=== PATIENT | male | born 1985 | race Caucasian/White ===

== ENCOUNTER 2019-01-17 18:56 | Emergency (ER) | payer OTHER, SELFPAY ==
[2019-01-17 18:57] VITALS: BP 132/91; PULSE 130; RESP 18; TEMP 36.7; O2SAT 95; BMI 37.8
--- NOTE | 2019-01-17 19:02 | EKG12_ITS ---
Test Reason : CP Blood Pressure : / mmHG Vent. Rate : 108 BPM Atrial Rate : 108 BPM P-R Int : 146 ms QRS Dur : 096 ms QT Int : 338 ms P-R-T Axes : 057 -18 024 degrees QTc Int : 452 ms Sinus tachycardia Otherwise normal ECG Confirmed by TREVOR MATA, DANNY ([id number]), editor department MANDIE VASQUEZ ([id number] on 01/19/2019 11:46:27 AM Referred By: JETT Confirmed By:DANNY MURRAY MD
--- NOTE | 2019-01-17 19:09 | ED.RN ---
NO OLD EKG
--- NOTE | 2019-01-17 19:22 | RAD_ITS ---
STUDY: X-RAY CHEST REASON FOR EXAM: Male, 33 years old. Chest pain. Shortness of breath. Diaphoresis. TECHNIQUE: PA and lateral views of the chest. COMPARISON: None. FINDINGS: The lungs are clear and expanded. There is no demonstrated pleural abnormality. Normal size heart. Normal mediastinum and jennifer. Normal visualized pulmonary arteries. Normal visualized aortic arch and descending thoracic aorta. Normal visualized thoracic spine. Normal visualized ribs, clavicles, and shoulders. There is no demonstrated abnormality of the visualized soft tissue structures of the upper abdomen. RAD/Chest PA and Lateral IMPRESSION: Normal x-ray examination of the chest. Electronically Signed: Lemuel Hooper DO at 19:32 EST Tel [phone], Service support ,
[2019-01-17 19:43] LABS: Basophil# 0.05 X10^3/uL; Basophil% 0.6 % (0-1); Eosinophil# 0.14 X10^3/uL; Eosinophils% 1.7 % (0-5); Hematocrit 49.5 % (40-54); Lymphocyte % 13.2 % (19-41); Mean Corp Hgb Conc 37.2 g/dL (32-36); Mean Corpuscular Hgb 31.2 pg (27.0-32.0); Mean Corpuscular Volume 83.9 fL (80-94); Mean Platelet Vol. 11.3 fl (6.2-12.0); Monocyte# 0.97 X10^3/uL; Monocyte% 11.7 % (0-10); NRBC Flagged by Analyzer 0 % (0-5); Neutrophil # 6.03 X10^3/uL (2.7-7.7); Neutrophil % 72.6 % (47-70); Platelet Count 165 K/mm3 (150-450); RBC Distribution Width CV 12.5 % (11.6-14.6); RBC Distribution Width SD 38.2 fl (35.1-43.9); White Blood Count 8.3 K/mm3 (4.4-11.0)
[2019-01-17] MEDS: 0.9% Normal Saline 1,000 ML 999 ML IV (19:49)
[2019-01-17] MEDS: Ondansetron 4 MG/2 ML Vial IV (19:49)
[2019-01-17] MEDS: Ketorolac 30 MG/ML Syringe IV (19:50)
[2019-01-17 19:51] LABS: Differential Indicated SCAN CRITERIA MET; Hemoglobin 18.4 g/dL (13.0-16.5)
[2019-01-17 19:56] LABS: D-Dimer Quantitative (DVT/PE) 1.86 FEU/ug/m (0.27-0.49)
--- NOTE | 2019-01-17 19:57 | CT_ITS ---
STUDY: CTA CHEST REASON FOR EXAM: Male, 33 years old. Shortness of breath. Chest pain. Smoker. Elevated d-dimer. RADIATION DOSAGE (If Supplied By Facility): CTDIvol = ( 24.82 ) mGy, DLP = ( 817.00 ) mGycm TECHNIQUE: The examination was performed with the intravenous administration of IV 100mL Isovue-370. Post-processing of the angiographic images was performed, with multiplanar reformation and 3D reconstruction. Individualized dose optimization techniques were used for this CT. COMPARISON: Chest, January 17, 2019. FINDINGS: Normal enhancement of the main pulmonary artery and right and left pulmonary arteries. Normal enhancement of the bilateral peripheral pulmonary arteries. There is no demonstrated pulmonary embolism. Normal thoracic aorta and visualized great vessels. There is no demonstrated aortic dissection. Normal heart and pericardium. Normal mediastinum. Normal hilar regions. Normal visualized trachea and bronchi. The lungs are well expanded. Normal pulmonary parenchyma. Normal pleura. Normal chest wall structures. Normal osseous structures. Hepatosplenomegaly. CT/CTA Chest W/WO Contrast IMPRESSION: 1. Normal CTA chest examination, without a demonstrated pulmonary embolism or arterial dissection. 2. Hepatosplenomegaly. Electronically Signed: Lemuel Hooper DO at 20:31 EST Tel [phone], Service support ,
[2019-01-17 20:00] VITALS: BP 131/80; PULSE 98; RESP 19; O2SAT 95
[2019-01-17 20:01] LABS: Anion Gap 7 (5-15); BUN 17 mg/dL (7-18); BUN/Creat Ratio 14.9 RATIO (10-20); Calcium,Total 9.5 mg/dL (8.5-10.1); Chloride 102 mmol/L (98-107); Creatinine, Serum 1.14 mg/dL (0.70-1.30); EST Glomerular Filtration Rate 78 mL/min (>60); Est Glom Filt Rate - Afr Amer 94 mL/min (>60); Estimated Creatinine Clearance 103.18 ml/min; Glucose 113 mg/dL (74-106); Potassium 3.3 mmol/L (3.5-5.1); Sodium Level 134 mmol/L (136-145)
[2019-01-17 20:37] LABS: Platelet Estimate ADEQUATE (ADEQ); Red Cell Morphology NORM C+C NORMAL (NORM C&C)
[2019-01-17 21:00] VITALS: BP 127/80; PULSE 95; RESP 15; O2SAT 95
--- NOTE | 2019-01-17 21:06 | ED.VISSUMM ---
- ER Visit Summary Date of Service: 01/17/19 Chief Complaint: Chest pain History of Present Illness: The patient is a [address] Eugene. He reports he has chest pain that began today at 4:00 while he was at rest. Is a continuous stabbing, aching pain is substernal in location. Zeta 10 currently and at worst. Is worsened by re-breathing. Relieved by nothing. Reports has been nauseated. He denies any vomiting. Reports is been diaphoretic and short of breath. Also states has been lightheaded. Patient does have a family history of DVT. 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 However, he denies any ankle swelling or calf pain. He does report that his been ill over the past 3 days. He has had subjective fever, chills, myalgias, cough, and generalized weakness. Physical Examination: Vitals: Stable. Afebrile. General: Well-nourished and well-developed. Head: Normocephalic atraumatic. HEENT: Pharyngeal erythema. No tonsillar exudate or enlargement. Neck: Supple, no lymphadenopathy. No JVD. Nontender. Cardiovascular: Regular rate and rhythm. No murmurs. Respiratory: No respiratory distress. Clear to auscultation bilaterally. Abdominal: Soft, nontender, nondistended, normal bowel sounds. No guarding, rebound, or peritoneal signs. Back: Nontender. Extremities: Nontender, no edema. Skin: Normal color, no rash. Neurologic: Alert and oriented ?3. Cranial nerves II through XII are intact. Normal strength and sensation. Psych: Normal affect. Test Results: EKG sinus tachycardia 108 with non-acute changes. Opponent is negative. D-dimer is 1.86. 7 shows a sodium 134, potassium 3.3, glucose 113. CBC shows a hemoglobin of 18.4, segmented for 73, 02/15/2012. Influenza and strep are negative. Clinical Impression(s) from Imaging Studies Chest X-Ray 01/17/19 19:22 IMPRESSION: Normal x-ray examination of the chest. Electronically Signed: Lemuel Hooper DO at 19:32 EST Tel [phone], Service support , Chest CTA 01/17/19 19:57 IMPRESSION: 1. Normal CTA chest examination, without a demonstrated pulmonary embolism or arterial dissection. 2. Hepatosplenomegaly. Electronically Signed: Lemuel Hooper DO at 20:31 EST Tel [phone], Service support , Emergency Department Course and Treatment: Patient was given a liter of normal saline. He was given Toradol IV. He is resting comfortably. Treatment Plan: Patient will be discharged symptomatic care. Push fluids. Use Tylenol/ibuprofen for fever and pain. Follow-up with Dr. montiel in 3 to 5 days if not improving. Return to the emergency department for any worsening symptoms. Disposition: To home in improved and stable condition. Impression: 1. Atypical chest pain. 2. URI. This note was generated with [employer] dictation software. It may contain incorrect words, spelling, and punctuation that were not noted in review of the chart prior to signing ED Disposition - Plan for ED Patient: Disposition: Home or Assisted Living Instructions: CHEST PAIN, Uncertain Cause Prescriptions: Naproxen [Naprosyn] 500 mg PO BID #14 tab Prescription Printed Referrals: Adelso Pacheco MD [Primary Care Provider] - 3-5 Days if not improving
[2019-01-17 21:25] VITALS: BP 134/82; PULSE 88; RESP 14; O2SAT 100
[2019-01-18 15:22] LABS: Pathologist Review Reviewed
== END 2019-01-17 21:26 | disposition home or self-care (01) ==
PROVIDERS: Emergency Provider Emergency Medicine; Family Provider Family Medicine; PCP Family Medicine
DX: R07.89 Other chest pain (principal); J06.9 Acute upper respiratory infection, unspecified; Z72.0 Tobacco use
CPT/HCPCS: 71046; 71275; 80048; 84484; 85025; 85379; 87804; 87880; 93005; 96361; 96374; 96375; 99284; J7030; Q9967; A4216; J2405